=== PATIENT | female | born 1950 | race Caucasian/White ===

== ENCOUNTER → 2016-10-30 | Outpatient (CLI) | payer MEDICARE, OTHER ==
[~2016-10-30] MED LIST: ASPI-496 PO; ASPI-621 PO; ATOR40TA78 PO; CARV6.2512 PO; DOCU-30 PO; DOCU100T6 PO; ESCI20TA PO; FURO-92 PO; HYDR12.58 PO; LEVO150T5 PO; LEVO175T5 PO; LISI-167 PO; LISI1TAB5 PO; METO25TA91 PO; PANT40TA5 PO; POTA10TA11 PO; WARF5TAB7 PO
[2016-10-30 12:51] LABS: ASPARTATE AMINO TRANSFERASE 8 U/L (15-37); BLOOD UREA NITROGEN 20 mg/dL (7-18)
== END | disposition home or self-care (01) ==
LOC: STAR 11:21
PROVIDERS: ATTEND Internal Medicine Gastroenterology
DX: Z01.818 Encounter for other preprocedural examination (principal); R13.10 Dysphagia, unspecified
CPT/HCPCS: 36415; 80053; 93005

== ENCOUNTER 2016-11-08 12:50 | Day surgery (SDC) | payer MEDICARE, OTHER ==
[~2016-11-08] VITALS: Ht 167.6 cm; Wt 112.0 kg
[2016-11-08] MEDS ORDERED: LACTATED RINGERS 1,000 ML IV SCH (13:15)
[2016-11-08 13:18] VITALS: BP 157/95
[2016-11-08] MEDS ORDERED: MIDAZOLAM 1 MG/ML, 2ML ONE (13:52)
[2016-11-08] MEDS ORDERED: PROPOFOL 10 MG/ML, 20ML ONE (14:33)
[2016-11-08] MEDS ORDERED: ONDANSETRON 2MG/ML, 2ML ONE (14:33)
[2016-11-08] MEDS ORDERED: KETOROLAC 30 MG/1 ML ONE (14:33)
[2016-11-08] MEDS ORDERED: ACETAMINOPHEN 325 MG TABLET PO PRN (15:30)
[2016-11-08] MEDS ORDERED: OXYcodone 5 MG/5 ML ORAL.SOL UDC PO PRN (15:30)
[2016-11-08] MEDS ORDERED: ONDANSETRON 2MG/ML, 2ML IVPush PRN (15:30)
[2016-11-08] MEDS ORDERED: PROMETHAZINE 25 MG/ML, 1ML IV PRN (15:30)
[2016-11-08] MEDS ORDERED: ALBUTEROL SULFATE 2.5 MG/3 ML NPPB PRN (15:30)
[2016-11-08] MEDS ORDERED: hydrALAzine 20 MG/ML, 1ML IV PRN (15:30)
[2016-11-08] MEDS ORDERED: METOPROLOL 1 MG/ML, 5ML IV PRN (15:30)
[2016-11-08] MEDS ORDERED: HYDROmorphone 1 MG/ML, 1ML IV PRN (15:30)
[2016-11-08] MEDS ORDERED: FENTANYL PF 100 MCG/2ML IV PRN (15:30)
[2016-11-08] MEDS ORDERED: LABETALOL 5MG/ML, 20ML IV PRN (15:30)
[2016-11-08] MEDS ORDERED: EPHEDRINE 50 MG/ML, 1ML IVPush PRN (15:30)
== END 2016-11-08 16:15 | disposition home or self-care (01) ==
LOC: OUT 12:50
PROVIDERS: ATTEND Internal Medicine Gastroenterology
DX: K44.9 Diaphragmatic hernia without obstruction or gangrene (principal); K21.9 Gastro-esophageal reflux disease without esophagitis; R13.13 Dysphagia, pharyngeal phase; K22.8 Other specified diseases of esophagus; Z95.0 Presence of cardiac pacemaker; I10 Essential (primary) hypertension; G47.33 Obstructive sleep apnea (adult) (pediatric); I48.91 Unspecified atrial fibrillation; I48.92 Unspecified atrial flutter; E03.9 Hypothyroidism, unspecified; E66.01 Morbid (severe) obesity due to excess calories; Z68.39 Body mass index [BMI] 39.0-39.9, adult; Z85.820 Personal history of malignant melanoma of skin; Z95.4 Presence of other heart-valve replacement
CPT/HCPCS: 43248; J1885; J2250; J2405; J2704

== ENCOUNTER → 2018-05-09 | Outpatient (CLI) | payer MEDICARE, OTHER ==
[~2018-05-09] MED LIST changes: +APIX5TAB PO; -ASPI-621 PO; +ASPI81TA45 PO; +CARV-39 PO; +DOCU-131 PO; -DOCU-30 PO; +ORLI60CA2 PO; +VITAMIN D; +WARF-36 PO; -WARF5TAB7 PO
[2018-05-09 11:03] LABS: ALANINE AMINOTRANSFERASE 20 U/L (12-78); ALBUMIN 3.9 g/dL (3.4-5.0); ANION GAP 8 mmol/L (5-15); CALCIUM 8.5 mg/dL (8.5-10.1); CHLORIDE 103 mmol/L (98-107)
[2018-05-09 11:05] LABS: ALKALINE PHOSPHATASE 118 U/L (45-117); BILIRUBIN,TOTAL 0.6 mg/dL (0.2-1.0); CREATININE 0.95 mg/dL (0.55-1.02); TOTAL PROTEIN 7.8 g/dL (6.4-8.2)
[2018-05-09 11:05] LABS: MICROSCOPIC INDICATED
[2018-05-09 11:07] LABS: CULTURE INDICATED? YES
[2018-05-09 11:32] LABS: BASOPHILS # (AUTO) 0.02 x10^3/uL (0-0.1); BASOPHILS % (AUTO) 0 % (0-1); EOSINOPHILS # (AUTO) 0.11 x10^3/uL (0-0.4); EOSINOPHILS % (AUTO) 2 % (1-7); LYMPHOCYTES # (AUTO) 1.17 x10^3/uL (1-3.4); LYMPHOCYTES % (AUTO) 19 % (22-44); MD SCAN; MEAN CORPUSCULAR HEMOGLOBIN 25.8 pg (27.0-34.8); MEAN CORPUSCULAR HGB CONC 32.9 g/dL (32.4-35.8); MEAN CORPUSCULAR VOLUME 78.3 fL (80-100); MEAN PLATELET VOLUME 11.5 fL (7.4-10.4); MONOCYTES # (AUTO) 0.42 x10^3/uL (0.2-0.8); MONOCYTES % (AUTO) 7 % (2-9); NEUTROPHILS # (AUTO) 4.35 x10^3/uL (1.8-6.8); NEUTROPHILS % (AUTO) 72 % (42-75); PLATELET COUNT 234 x10^3/uL (130-400); RED BLOOD COUNT 4.89 x10^6/uL (3.82-5.3)
== END | disposition home or self-care (01) ==
LOC: STAR 09:14
PROVIDERS: ATTEND Orthopaedic Surgery Adult Reconstructive Orthopaedic Surgery
DX: Z01.818 Encounter for other preprocedural examination (principal); M17.11 Unilateral primary osteoarthritis, right knee
CPT/HCPCS: 36415; 80053; 81001; 85025; 87081; 87086; 87806; 93005; G0475

== ENCOUNTER 2018-05-19 05:18 | Day surgery (SDC) | payer MEDICARE, OTHER ==
[2018-05-09 10:44] VITALS: BP 135/80
[~2018-05-19] VITALS: Ht 162.6 cm; Wt 109.3 kg
[~2018-05-19 05:18] MED LIST changes: -HYDR12.58 PO; +HYDROCHLOROTH12.5 MG PO
[2018-05-19] MEDS ORDERED: LACTATED RINGERS 1,000 ML IV SCH (05:39)
[2018-05-19] MEDS ORDERED: ACETAMINOPHEN 500 MG TABLET PO ONE (06:00)
[2018-05-19] MEDS ORDERED: GABAPENTIN 300 MG CAPSULE PO ONE (06:00)
[2018-05-19] MEDS ORDERED: LIDOCAINE-MPF 1%, 2ML INFIL ONE (06:00)
[2018-05-19] MEDS ORDERED: MIDAZOLAM 1 MG/ML, 2ML ONE (06:14)
[2018-05-19] MEDS ORDERED: LIDOCAINE-MPF 2% ,5ML ONE (06:14)
[2018-05-19] MEDS ORDERED: PROPOFOL 10 MG/ML, 20ML ONE (06:14)
[2018-05-19] MEDS ORDERED: DEXAMETHASONE 4 MG/ML, 1ML ONE ×2 (06:14)
[2018-05-19] MEDS ORDERED: EPINEPHRINE 1 MG/ML, 1ML ONE ×2 (06:14→06:21)
[2018-05-19] MEDS ORDERED: ROCURONIUM 10MG/ML,5ML ONE (06:14)
[2018-05-19] MEDS ORDERED: FENTANYL PF 100 MCG/2ML ONE (06:14)
[2018-05-19] MEDS ORDERED: CEFAZOLIN 1,000 MG ONE ×2 (06:14)
[2018-05-19] MEDS ORDERED: BUPIVACAINE/PF 0.5% ONE (06:15)
[2018-05-19] MEDS ORDERED: KETOROLAC 60 MG/2 ML ONE (06:20)
[2018-05-19] MEDS ORDERED: TRANEXAMIC ACID 100 MG/ML, 10ML ONE ×2 (06:21)
[2018-05-19] MEDS ORDERED: ROPIvacaine/PF 0.2%, 20 ML ONE (06:21)
[2018-05-19] MEDS ORDERED: BUPIVACAINE LIPOSOME/PF 10ML INFIL ONE (06:45)
[2018-05-19] MEDS ORDERED: HYDROmorphone 2 MG/ML, 1ML IVPush PRN (08:00)
[2018-05-19] MEDS ORDERED: MEPERIDINE/PF 25MG/0.5ML IVPush PRN (08:00)
[2018-05-19] MEDS ORDERED: MORPHINE SULFATE 4 MG/ML, 1ML IVPush PRN (08:00)
[2018-05-19] MEDS ORDERED: DIAZEPAM 5 MG/ML, 2ML IVPush PRN (08:00)
[2018-05-19] MEDS ORDERED: FENTANYL PF 100 MCG/2ML IV PRN (08:00)
[2018-05-19] MEDS ORDERED: hydrALAzine 20 MG/ML, 1ML IV PRN (08:00)
[2018-05-19] MEDS ORDERED: LABETALOL 5MG/ML, 20ML IV PRN (08:00)
[2018-05-19] MEDS ORDERED: METOPROLOL 1 MG/ML, 5ML IV PRN (08:00)
[2018-05-19] MEDS ORDERED: OXYcodone 5 MG/5 ML ORAL.SOL UDC PO PRN (08:00)
[2018-05-19] MEDS ORDERED: METOCLOPRAMIDE 5 MG/ML, 2ML IV PRN (08:00)
[2018-05-19] MEDS ORDERED: ONDANSETRON 2MG/ML, 2ML ONE (08:05)
[2018-05-19] MEDS ORDERED: SENNA/DOCUSATE TABLET PO PRN (08:30)
[2018-05-19] MEDS ORDERED: DIAZEPAM 5 MG TABLET PO PRN (08:30)
[2018-05-19] MEDS ORDERED: ACETAMINOPHEN 650 MG/20.3 ML UDC PO PRN (08:30)
[2018-05-19] MEDS ORDERED: ALUMINUM/MAG/SIMETHICONE 30 ML UDC PO PRN (08:30)
[2018-05-19] MEDS ORDERED: DIPHENHYDRAMINE 25 MG CAPSULE PO PRN (08:30)
[2018-05-19] MEDS ORDERED: BISACODYL 10 MG SUPP PR PRN (08:30)
[2018-05-19] MEDS ORDERED: OXYcodone IR 5MG TABLET PO PRN (08:30)
[2018-05-19] MEDS ORDERED: morphine SULFATE 10 MG/ML, 1ML IV PRN (08:30)
[2018-05-19] MEDS ORDERED: MAGNESIUM HYDROXIDE 8%, 30ML UDC PO PRN (08:30)
[2018-05-19] MEDS ORDERED: HYDROcodone/APAP 5/325 TABLET PO PRN (08:30)
[2018-05-19] MEDS ORDERED: ONDANSETRON 2MG/ML, 2ML IV PRN (08:30)
[2018-05-19] MEDS ORDERED: TRANEXAMIC ACID 1,000 MG in SODIUM CHLORIDE 0.9% 100 ML IV STA (08:47)
[2018-05-19] MEDS ORDERED: CITALOPRAM 20 MG TABLET PO SCH (09:00)
[2018-05-19] MEDS ORDERED: CARVEDILOL 25 MG TABLET PO SCH (09:00)
[2018-05-19] MEDS ORDERED: LISINOPRIL 10 MG TABLET PO SCH (09:00)
[2018-05-19] MEDS ORDERED: DOCUSATE 100 MG CAPSULE PO SCH (09:00)
[2018-05-19] MEDS ORDERED: HYDROCHLOROTHIAZIDE 12.5 MG CAPSULE PO SCH (09:00)
[2018-05-19] MEDS ORDERED: OXYcodone 5 MG/5 ML ORAL.SOL UDC ONE (09:02)
[2018-05-19 10:22] VITALS: BP 121/36
[2018-05-19] MEDS ORDERED: D5%-0.45NACL+KCL 20MEQ 1,000 ML IV SCH (10:30)
[2018-05-19 13:17] VITALS: BP 116/52
[2018-05-19] MEDS ORDERED: CEFAZOLIN PMX 2GM/50ML 50 ML IVPB SCH (15:00)
[2018-05-19] MEDS ORDERED: LABETALOL 5MG/ML, 20ML ONE (15:52)
[2018-05-19] MEDS ORDERED: NEOSTIGMINE 1 MG/ML, 10ML ONE (15:52)
[2018-05-19] MEDS ORDERED: GLYCOPYRROLATE 0.2MG/1ML, 5ML ONE (15:52)
[2018-05-19] MEDS ORDERED: ATORVASTATIN 40 MG TABLET PO SCH (21:00)
[2018-05-20] MEDS ORDERED: LEVOTHYROXINE 150 MCG TABLET PO SCH (06:00)
[2018-05-20] MEDS ORDERED: PANTOPROZOLE 40MG TABLET PO SCH (06:00)
[2018-05-20] MEDS ORDERED: APIXABAN 5 MG TABLET PO SCH (06:00)
== END 2018-05-19 17:00 | disposition home or self-care (01) ==
LOC: OUT 05:18 → 4NOR 10:15 → OUT 17:00
PROVIDERS: ATTEND Orthopaedic Surgery Adult Reconstructive Orthopaedic Surgery
DX: M17.11 Unilateral primary osteoarthritis, right knee (principal); E03.9 Hypothyroidism, unspecified; E66.9 Obesity, unspecified; Z68.41 Body mass index [BMI] 40.0-44.9, adult; Z85.828 Personal history of other malignant neoplasm of skin; M79.7 Fibromyalgia; D64.9 Anemia, unspecified; Z79.82 Long term (current) use of aspirin; Z79.899 Other long term (current) drug therapy; Z95.0 Presence of cardiac pacemaker
CPT/HCPCS: 27447; 64447; C1713; C1776; J0171; J0690; J1100; J1885; J2250; J2405; J2704; J2710; J2795; J3010; J3490; J7120; G0378